=== PATIENT | male | born 1975 | race Caucasian/White ===

== ENCOUNTER 2019-06-05 06:18 | Inpatient (IN) ==
[2019-06-05 06:25] LABS: BASO# 0.06 X1000 (0.0-0.2); BASO% 0.9 % (0.0-0.8); EOS# 0.33 X1000 (0.0-0.7); EOS% 4.7 % (0.0-10.0); HEMATOCRIT 51.5 % (42.0-52.0); HEMOGLOBIN 18.1 g/dL (14.0-18.0); LYMPH# 1.48 X1000 (1.2-3.4); MCH 30.6 PG (27-31); MCHC 35.1 g/dL (33-37); MCV 87.1 FL (81-99); MONO# 0.63 X1000 (0.11-0.59); MONO% 8.9 % (1.7-9.3); MPV 9.8 FL (7.4-10.4); NEUT# 4.54 X1000 (1.4-6.5); NEUT% 64.5 % (42.2-75.2); PLT 275 X1000 (130-400); RBC 5.91 XMIL (4.7-6.1); RDW 15.3 % (11.5-14.5); WBC 7.04 X1000 (4.8-10.8)
[2019-06-05 06:44] LABS: AGAP 20; ALKALINE PHOSPHATASE 86 U/L (32-122); BUN 7 mg/dL (8-22); CALCIUM 9.5 mg/dL (8.8-10.2); CHLORIDE 93 mmol/L (98-107); COSMO 279; CREATININE 0.8 mg/dL (0.7-1.2); ESTIMATED GFR > 60; GLUCOSE 101 mg/dL (70-104); GOT 374 U/L (10-34); GPT 327 U/L (10-44); LIPASE 139 U/L (13-60); POTASSIUM 4.4 mmol/L (3.5-5.1); SODIUM 141 mmol/L (136-145); TCO2 29 mmol/L (25-35); TOTAL PROTEIN 8.2 g/dL (6.3-8.3)
[2019-06-05 07:12] LABS: URINE SOURCE CLEAN CATCH
[2019-06-05] MEDS ORDERED: ZOFRAN IV ONE (07:20)
[2019-06-05] MEDS ORDERED: M.V.I.-12 10 ML, FOLIC ACID 1 MG, MAGNESIUM SULFATE 1 GM, THIAMINE 100 MG in NS 1,000 ML IV ONE (07:20)
[2019-06-05 07:24] LABS: BILIRUBIN URINE NEGATIVE (NEGATIVE); BLOOD URINE 4+ (NEGATIVE); CLARITY CLEAR (CLEAR); COLOR YELLOW; GLUCOSE URINE NEGATIVE (NEGATIVE); KETONE URINE NEGATIVE (NEGATIVE); LEUKOCYTES URINE NEGATIVE (NEGATIVE); NITRITE URINE NEGATIVE (NEGATIVE); PH URINE 6.5; PROTEIN URINE 1+(30 mg/dL) mg/dL (NEGATIVE); UROBILINOGEN URINE NORMAL
[2019-06-05 07:31] LABS: URINE BACTERIA 1+ /HFP; URINE CAST NONE SEEN /LPF; URINE CRYSTAL NONE SEEN /HPF; URINE EPITHELIAL CELLS <10 /HPF (<10); URINE RBC TNTC /HPF (<10); URINE WBC <10 /HPF (<10); URINE YEAST NONE SEEN /HPF
[2019-06-05 07:33] LABS: UR AMPHETAMINES QUAL NONE DETECTED (NONE DETECT); UR BARBITUATES QUAL NONE DETECTED (NONE DETECT); UR BENZODIAZEPIN QUAL NONE DETECTED (NONE DETECT); UR CANNABINOIDS QUAL PRESUMPTIVE POSITIVE (NONE DETECT); UR COCAINE QUAL NONE DETECTED (NONE DETECT); UR METHADONE QUAL NONE DETECTED (NONE DETECT); UR METHAMPHETAMINE QUAL NONE DETECTED (NONE DETECT); UR OPIATES QUAL NONE DETECTED (NONE DETECT); UR OXYCODONE QUAL NONE DETECTED (NONE DETECT); UR PCP QUAL NONE DETECTED (NONE DETECT); UR PROPOXYPHENE QUAL NONE DETECTED (NONE DETECT); UR TCA QUAL NONE DETECTED (NONE DETECT)
--- NOTE | 2019-06-05 07:57 | PROVIDER DOCUMENTATION ---
HPI-General Adult - General Chief Complaint: Abdominal Pain Stated Complaint: Abd. pain/elevated heart rate Time Seen by Provider: 06/05/19 07:06 Source: patient Allergies/Adverse Reactions: Patient Allergies Allergy/AdvReac Type Severity Reaction Status Date / Time No Known Allergies Allergy Verified 06/05/19 05:58 Home Medications: Home Medication List Medication Instructions Recorded Confirmed Last Taken Type NK [No Home Medications] 06/05/19 06/05/19 Unknown History - History of Present Illness -Gen Adult Nature of Presenting Problems: Pt presents this am complaining of vomiting and abd pain as well as seeking help with alcohol abuse and depression. He states a long history of feeling depressed and suicidal and has severe agoraphobia, spending as long as 2 years at one point isolating himself. He drinks daily and has not eaten in 3 days. He drinks only beer now, not liquor. He has no plan to kill himself currently, but has thoughts of it because of hopelessness. No dark stools, hematochezia, he matemesis. Review of Systems - Adult - REVIEW OF SYSTEMS - ADULT Constitutional: denies: chills, fever Eyes: reports: no symptoms reported Ears, Nose, Mouth & Throat: reports: no symptoms reported Cardiovascular: reports: no symptoms reported Respiratory: reports: no symptoms reported Gastrointestinal: reports: see HPI Genitourinary: reports: no symptoms reported Musculoskeletal: reports: no symptoms reported Integumentary: reports: no symptoms reported Neurological: reports: no symptoms reported Psychiatric: reports: see HPI Endocrine: reports: no symptoms reported Hematologic/Lymphatic: reports: no symptoms reported Allergic/Immunologic: reports: no symptoms reported Past History - Adult - PAST MEDICAL HISTORY-ADULT Review of Records: reports: Nursing Assessment Review, Medications Reviewed Major Childhood Illnesses: reports: denies history Cardiovascular: reports: denies history Respiratory: reports: asthma Gastrointestinal: reports: denies history Obstetrical/Gynecological: reports: denies history Genitourinary: reports: denies history Musculoskeletal: reports: chronic pain (neck), intervertebral disc disease Neurological: reports: denies history Psychiatric: reports: anxiety Endocrine/Immune: reports: denies history Other Conditions: reports: denies history - PRIOR SURGERIES/PROCEDURES Surgical/Procedure History: reports: back/neck - IMMUNIZATION STATUS Childhood Immunizations: See Nurse Assessment Flu Vaccine: See Nurse Assessment - FAMILY HISTORY Family History: reviewed, not pertinent Physical Exam-General - CONSTITUTIONAL General Appearance: appears well, alert - EYES Eyes: PERRL/EOMI, pink conjunctivae - HEAD, EARS, NOSE, MOUTH & THROAT HENMT: normocephalic/atraumatic, moist mucous membranes, normal ENT inspection - NECK Neck: non-tender, full range of motion, supple, normal inspection - RESPIRATORY Respiratory: chest non-tender, lungs clear, normal breath sounds - CARDIOVASCULAR Cardiovascular: normal peripheral pulses, regular rate, rhythm, no edema, no JVD - GASTROINTESTINAL (ABDOMEN) Abdominal Exam: normal bowel sounds, non tender, soft - MUSCULOSKELETAL Back Exam: normal inspection, no CVA tenderness, no vertebral tenderness Extremity: normal range of motion, non-tender - SKIN Integumentary: normal color, normal turgor, warm/dry - NEUROLOGIC Neurologic: other (No tremor, clear speech.). negative: focal weakness, motor weakness, sensory deficit - PSYCHIATRIC Psych/Mental Status: normal thought content, normal thought process, oriented x 3, anxious Progress - PLAN OF CARE/RESULTS Progress/Plan/Lab Results: Vital Signs - 8 hr 06/05/19 05:53 Temperature 98.1 F Pulse Rate 115 H Respiratory Rate 16 Blood Pressure 155/107 O2 Sat by Pulse Oximetry 94 L Laboratory Results - last 24 hr 06/05/19 06/05/19 06/05/19 06:14 06:14 06:14 WBC 7.04 RBC 5.91 Hgb 18.1 H Hct 51.5 MCV 87.1 MCH 30.6 MCHC 35.1 RDW Std Deviation 15.3 H Plt Count 275 MPV 9.8 Immature Gran % (Auto) 0.0 Neut % (Auto) 64.5 Lymph % (Auto) 21.0 [place] % (Auto) 8.9 Eos % (Auto) 4.7 Baso % (Auto) 0.9 H Immature Gran # (Auto) 0.00 Neut # (Auto) 4.54 Lymph # (Auto) 1.48 Glad[place] # (Auto) 0.63 H Eos # (Auto) 0.33 Baso # (Auto) 0.06 Sodium 141 Potassium 4.4 Chloride 93 L Carbon Dioxide 29 Anion Gap 20 BUN 7 L Creatinine 0.8 Estimated GFR/1.73 m2 > 60 BUN/Creatinine Ratio 9 Glucose 101 Calculated Osmolality 279 Calcium 9.5 Total Bilirubin 1.20 H AST 374 H ALT 327 H Alkaline Phosphatase 86 Total Protein 8.2 Albumin 5.0 Globulin 3.0 Albumin/Globulin Ratio 2.0 Lipase 139 H Urine Source Urine Color Urine Clarity Urine pH Ur Specific [place] Urine Protein Urine Ketones Urine Blood Urine Nitrite Urine Bilirubin Urine Urobilinogen Urine Microscopic RBC Urine WBC Urine Microscopic WBC Ur Epithelial Cells Urine Crystals Urine Bacteria Urine Casts Urine Yeast Urine Glucose Urine Opiates Screen Ur Oxycodone Screen Urine Methadone Screen U Propoxyphene Qual Ur Barbituates Screen Ur Tricyclics Screen Ur Phencyclidine Scrn Ur Amphetamines Screen U Methamphetamines Scrn U Benzodiazepines Scrn Urine Cocaine Screen U Cannabinoids Screen Plasma/Serum Ethyl Alc 336 H 06/05/19 06/05/19 07:03 07:03 WBC RBC Hgb Hct MCV MCH MCHC RDW Std Deviation Plt Count MPV Immature Gran % (Auto) Neut % (Auto) Lymph % (Auto) Glad[place] % (Auto) Eos % (Auto) Baso % (Auto) Immature Gran # (Auto) Neut # (Auto) Lymph # (Auto) [place] # (Auto) Eos # (Auto) Baso # (Auto) Sodium Potassium Chloride Carbon Dioxide Anion Gap BUN Creatinine Estimated GFR/1.73 m2 BUN/Creatinine Ratio Glucose Calculated Osmolality Calcium Total Bilirubin AST ALT Alkaline Phosphatase Total Protein Albumin Globulin Albumin/Globulin Ratio Lipase Urine Source CLEAN CATCH Urine Color YELLOW Urine Clarity CLEAR Urine pH 6.5 Ur Specific [place] 1.010 Urine Protein 1+(30 mg/dL) A Urine Ketones NEGATIVE Urine Blood 4+ Urine Nitrite NEGATIVE Urine Bilirubin NEGATIVE Urine Urobilinogen NORMAL Urine Microscopic RBC TNTC A Urine WBC NEGATIVE Urine Microscopic WBC <10 Ur Epithelial Cells <10 Urine Crystals NONE SEEN Urine Bacteria 1+ Urine Casts NONE SEEN Urine Yeast NONE SEEN Urine Glucose NEGATIVE Urine Opiates Screen NONE DETECTED Ur Oxycodone Screen NONE DETECTED Urine Methadone Screen NONE DETECTED U Propoxyphene Qual NONE DETECTED Ur Barbituates Screen NONE DETECTED Ur Tricyclics Screen NONE DETECTED Ur Phencyclidine Scrn NONE DETECTED Ur Amphetamines Screen NONE DETECTED U Methamphetamines Scrn NONE DETECTED U Benzodiazepines Scrn NONE DETECTED Urine Cocaine Screen NONE DETECTED U Cannabinoids Screen PRESUMPTIVE POSITIVE A Plasma/Serum Ethyl Alc Orders Category Date Time Status Saline Loc NOW Care 06/05/19 06:19 Active NPO Diet 06/05/19 06:19 Active ALCOHOL BLOOD Stat Lab 06/05/19 06:14 Completed CBC WITH DIFF [HEME] Stat Lab 06/05/19 06:14 Completed COMPREHENSIVE METABOLIC PANEL [CHEM] Stat Lab 06/05/19 06:14 Completed LIPASE [CHEM] Stat Lab 06/05/19 06:[address] [URINALYSIS] Stat Lab 06/05/19 07:03 Com[address]INE DRUG SCREEN [address] Stat Lab 06/05/19 07:03 Completed URINE MICROSCOPIC [URINALYSIS] Stat Lab 06/05/19 07:03 Completed Mvi [M.v.i.-12] 10 ml Med 06/05/19 07:20 Active Folic Acid 1 mg Magnesium Sulfate 1 gm Thiamine 100 mg 0.9% Sodium Chloride Inj [Ns] 1,000 ml IV NOW Ondansetron [Zofran] Med 06/05/19 07:20 Discontinued 4 mg IV NOW ONE Abd Pain/OB <20 weeks Stat Oth 06/05/19 06:19 Ordered EKG [EKG] Stat Ther 06/05/19 07:20 Ordered CLINICALLY STABLE UNDER MY CARE. THE PT WAITED IN THE ED THROUGH THE DAY FOR HIS BG TO GET UNDER 100 SO THAT HE COULD UNDERGO PSYCH SCREENING. HE BEGAN TO BECOME INCREASINGLY ANXIOUS AND DEVELOPED FINE RESTING TREMOR CONSISTENT WITH ETOH WITHDRAWAL. HE WAS GIVEN MULTIPLE DOSES OF ATIVAN IN ADDITION TO A BANANA BAG AND IV NS. GIVEN HIS CURRENT WITHDRAWAL STATE HE WAS ADMITTED TO THE HOSPITALIST SERVICE. NO SEIZURE ACTIVITY NOTED. Result Diagrams: 06/05/19 06:14 06/05/19 06:14 Departure - Departure Date of Disposition Decision: 06/05/19 Time of Disposition Decision: 18:20 DIAGNOSIS: Suicidal ideation Alcohol withdrawal Qualifiers: Complication of substance-induced condition: uncomplicated Qualified Code(s): F10.230 - Alcohol dependence with withdrawal, uncomplicated Alcoholic pancreatitis Qualifiers: Chronicity: acute Acute pancreatitis complication: unspecified Qualified Code(s): K85.20 - Alcohol induced acute pancreatitis without necrosis or infection Disposition: ADMITTED INPATIENT 09 Certified Medical Emergency: Emergent Condition: Fair - Critical Care Note This patient required my direct & personal management of CC.: No Attestation - Physician/ BLANK Attestation Patient care was provided by Advanced Practice Provider:: No The physician spent face to face time with patient:: Yes Advanced Practice Provider documentation review:: Supervising physician onsite and consulted in the evaluation and care of this patient. The physician did have a face to face encounter with the patient.
[2019-06-05] MEDS ORDERED: ATIVAN IV ONE ×4 (10:31→18:31)
--- NOTE | 2019-06-05 12:10 | EKG Report ---
Test Performed on : 06/05/2019 12:02:26 PM Test Reason : screening. Blood Pressure : / mmHG Vent. Rate : 083 BPM Atrial Rate : 083 BPM P-R Int : 152 ms QRS Dur : 086 ms QT Int : 376 ms P-R-T Axes : 065 074 069 degrees QTc Int : 441 ms Normal sinus rhythm. Possible Left atrial enlargement Borderline ECG No previous ECGs available Unconfirmed Result
[2019-06-05] MEDS ORDERED: ATIVAN ONE (17:55)
[2019-06-05] MEDS ORDERED: NS 1,000 ML IV ONE (18:16)
[2019-06-05] MEDS ORDERED: D5W 1,000 ML IV PRN (18:31)
[2019-06-05] MEDS ORDERED: IMODIUM PO PRN (18:31)
[2019-06-05] MEDS ORDERED: DESYREL PO PRN (18:31)
[2019-06-05] MEDS ORDERED: DULCOLAX PR PRN (18:31)
[2019-06-05] MEDS ORDERED: BENTYL PO PRN (18:31)
[2019-06-05] MEDS ORDERED: TUBERSOL ID ONE ×2 (18:31→21:15)
[2019-06-05] MEDS ORDERED: MAALOX PLUS LIQUID PO PRN (18:31)
[2019-06-05] MEDS ORDERED: SENOKOT PO PRN (18:31)
[2019-06-05] MEDS ORDERED: PHENOBARBITAL IV PRN (18:31)
[2019-06-05 19:16] LABS: HEMOGLOBIN 15.9 g/dL (14.0-18.0); MCH 30.5 PG (27-31); MCHC 34.6 g/dL (33-37); MCV 88.1 FL (81-99); MPV 10.6 FL (7.4-10.4); RBC 5.22 XMIL (4.7-6.1); RDW 15.3 % (11.5-14.5); WBC 5.51 X1000 (4.8-10.8)
[2019-06-05] MEDS: LIBRIUM PO SCH (19:56)
[2019-06-05 20:09] LABS: AGAP 16; ALBUMIN 4.2 g/dL (3.5-5.0); ALKALINE PHOSPHATASE 68 U/L (32-122); BUN 7 mg/dL (8-22); CALCIUM 9.3 mg/dL (8.8-10.2); CHLORIDE 96 mmol/L (98-107); COSMO 275; CREATININE 0.6 mg/dL (0.7-1.2); ESTIMATED GFR > 60; GLUCOSE 90 mg/dL (70-104); GOT 257 U/L (10-34); GPT 260 U/L (10-44); LIPASE 82 U/L (13-60); POTASSIUM 4.6 mmol/L (3.5-5.1); SODIUM 139 mmol/L (136-145); TCO2 28 mmol/L (25-35)
[2019-06-05] MEDS: ATARAX PO PRN (22:54)
[2019-06-05] MEDS: ROBAXIN PO PRN (22:54)
--- NOTE | 2019-06-05 23:33 | HISTORY AND PHYSICAL ---
CHIEF COMPLAINT: Abdominal pain. HISTORY OF PRESENT ILLNESS: Patient presented to the hospital with abdominal pain, nausea, vomiting. States that he has been drinking heavily at least 15 beers or more a day. Denied any fevers or chills. States he has a long history of drinking and isolating himself. Notes that when he becomes depressed and starts drinking more, he also becomes suicidal, which he has had some negative thoughts recently. Notes that he wants help. States he has no plan to kill himself, but he has had negative thoughts and thoughts of hopelessness. ALLERGIES: No known drug allergies. MEDICATIONS: None. REVIEW OF SYSTEMS: As noted above. Denies any cough, congestion. Does states he has had sweating, tremors, myalgias, abdominal pain. He has had some diarrhea. Denies any hematochezia, melena, hematemesis. Denies fevers or chills. States he has had tremors at rest. Has had difficulty concentrating. Denies any seizures from withdrawal in the past but does note that his symptoms typically do get worse. PAST MEDICAL HISTORY: Significant for back pain, chronic anxiety, depression, asthma. Notes he has had back issues in the past requiring surgical intervention. FAMILY HISTORY: Noncontributory. SOCIAL HISTORY: Patient has been drinking heavily. He does smoke. Denies any illicit substance use. PHYSICAL EXAMINATION: VITAL SIGNS: Reviewed. Temperature 98 degrees, pulse 115, respiratory 16, BP 155/107, saturation 94% on room air. GENERAL: Patient is awake, alert. He is in moderate distress due to withdrawal, but he is in no respiratory distress. HEENT: Normocephalic, atraumatic. RHIANNON. NECK: Supple. CARDIOVASCULAR: Tachycardia. No murmurs. CHEST: Clear and nonlabored although is tachypneic. ABDOMEN: Soft, nondistended. EXTREMITIES: Moves all extremities. NEUROLOGIC: He has no focal changes though he does have tremors at rest. He is jittery, anxious on exam. SKIN: He is noted to be diaphoretic. Has no rashes. LABORATORIES: CBC, CMP essentially negative with a CO2 at 29. ASSESSMENT: 1. Nausea, vomiting. 2. Abdominal pain. 3. Myalgias. 4. Paresthesias. 5. Tremors. 6. Alcohol abuse, withdrawal and stabilization. 7. Chronic anxiety, depression with suicidal thoughts. PLAN: We are going to admit patient to the hospital. IV Ativan. Start him on p.o. Librium. We will continue to follow and monitor for withdrawal. Certainly will need to consider [facility] upon discharge. cc: Tien Laura MD
[2019-06-05] MEDS: ATIVAN IV PRN (23:51)
[2019-06-06] MEDS: LIBRIUM PO SCH ×4 (06:13→18:42)
[2019-06-06] MEDS: PROTONIX PO SCH (06:13)
[2019-06-06 07:29] LABS: INR 0.83; PROTIME 11.8 Seconds (11.0-16.0)
[2019-06-06] MEDS ORDERED: THERA M PLUS PO SCH (09:00)
[2019-06-06] MEDS ORDERED: M.V.I.-12 10 ML, FOLIC ACID 1 MG, MAGNESIUM SULFATE 1 GM, THIAMINE 100 MG in NS 1,000 ML IV ONE (09:00)
[2019-06-06] MEDS: FOLIC ACID PO SCH (09:58)
[2019-06-06] MEDS: VITAMIN B-1 PO SCH (09:58)
--- NOTE | 2019-06-06 11:57 | Diag Imaging Result Doc PS360 ---
EXAM: US ABDOMEN-COMPLETE - 06/06/2019 HISTORY: elevated lft TECHNIQUE: Portable ultrasound abdomen COMPARISON: 07/22/2018 FINDINGS: The liver appears somewhat echodense diffusely suggesting fatty infiltration. There is no focal liver lesion identified. Doppler image shows hepatopedal flow in the portal vein. Spleen is unremarkable. There is no ascites seen. The gallbladder is mildly distended but otherwise unremarkable. There is no evidence of gallstones. There is no evidence of abnormal gallbladder wall thickening. The technologist reports negative sonographic Crawford's sign. The common bile duct is normal caliber at 4 mm. The pancreas is obscured by bowel gas artifacts. There are no abnormalities of the bilateral kidneys identified. Abdominal aorta and IVC appear normal caliber. IMPRESSION: Apparent fatty infiltration of liver. No evidence of focal liver lesion. Nonspecific mildly distended gallbladder, which is otherwise unremarkable. No evidence of gallstones. Normal caliber common bile duct at 4 mm. The pancreas is obscured by bowel gas artifacts. Electronically signed by Efren Robin 06/06/2019 11:54 AM
[2019-06-06] MEDS: ATIVAN IV PRN ×3 (14:38→23:10)
--- NOTE | 2019-06-06 19:50 | PROGRESS NOTE ---
DATE: 06/06/2019 SUBJECTIVE: The patient notes that he feels tremendously better. He is not having any tremors currently. Denies any current active suicidal thoughts, but states he is still depressed and still has difficulty with his future plans. OBJECTIVE: Vital Signs: Temperature 99 degrees, pulse 92, respiratory rate 18, BP 97/58 to 131/84. General: The patient is in no current respiratory distress. He is awake, alert, oriented, very pleasant to talk with. Tremors have all but resolved. He is no longer sweating. He does not appear to be jittery, anxious or fidgety on exam and he was in the ER last night. Cardiovascular: Regular rate. Chest clear. Abdomen soft. Extremities: Moves all extremities. Neurologic: No changes. ASSESSMENT: 1. Nausea and vomiting. 2. Abdominal pain. 3. Myalgias. 4. Tremors. 5. Paresthesias. 6. Paroxysmal sweating. 7. Alcohol abuse, withdrawal and stabilization. 8. Chronic depression with suicidal ideations. PLAN: We are going to continue the patient in the hospital. Continue high-dose Librium taper. Continue counseling. We will get [facility] involved on discharge. cc: Tien Laura MD
[2019-06-06] MEDS: NICODERM PATCH TD PRN ×2 (21:23)
[2019-06-06] MEDS: ROBAXIN PO PRN (21:23)
[2019-06-06] MEDS: SEROQUEL PO PRN (21:23)
[2019-06-06] MEDS: ATARAX PO PRN (21:34)
[2019-06-07] MEDS: LIBRIUM PO SCH ×4 (00:03→20:51)
[2019-06-07] MEDS: ATIVAN IV PRN ×4 (02:12→22:45)
[2019-06-07] MEDS: ROBAXIN PO PRN (03:05)
[2019-06-07] MEDS: ATARAX PO PRN (03:05)
[2019-06-07 05:52] LABS: HEMOGLOBIN 15.2 g/dL (14.0-18.0); MCHC 33.8 g/dL (33-37); MCV 88.8 FL (81-99); MPV 10.8 FL (7.4-10.4); RBC 5.07 XMIL (4.7-6.1); WBC 8.81 X1000 (4.8-10.8)
[2019-06-07] MEDS: PROTONIX PO SCH (06:08)
[2019-06-07 06:16] LABS: AGAP 14; ALBUMIN 4.5 g/dL (3.5-5.0); ALKALINE PHOSPHATASE 80 U/L (32-122); BUN 7 mg/dL (8-22); CHLORIDE 98 mmol/L (98-107); COSMO 273; CREATININE 0.7 mg/dL (0.7-1.2); ESTIMATED GFR > 60; GLUCOSE 94 mg/dL (70-104); GOT 148 U/L (10-34); GPT 213 U/L (10-44); MAGNESIUM 1.9 mg/dL (1.5-2.7); POTASSIUM 3.9 mmol/L (3.5-5.1); SODIUM 138 mmol/L (136-145); TCO2 26 mmol/L (25-35); TOTAL PROTEIN 7.5 g/dL (6.3-8.3)
[2019-06-07] MEDS: FOLIC ACID PO SCH (09:06)
[2019-06-07] MEDS: VITAMIN B-1 PO SCH (09:06)
--- NOTE | 2019-06-07 14:07 | PROGRESS NOTE ---
DATE: 06/07/2019 SUBJECTIVE: Patient has no new complaints. States he is still anxious, nervous, worried about discharge. Continues to complain of neck pain, back pain. His neurologic symptoms certainly seem to be changing. Yesterday he denies any weakness and when we discussed his neck pain, although he did state that he had numbness in his legs. Today, he appears to note that he has had weakness in both hands off and on for several months. He is asking that he has an MRI. PHYSICAL EXAMINATION: Vital Signs: Temperature 97.8 degrees, pulse 91, respiratory rate 18, BP 121/86. General: Patient is awake. He is in no distress. HEENT: Normocephalic. Neck: Supple. Cardiovascular: Regular rate. Chest: Clear, nonlabored. Abdomen: Soft. Extremities: Moves all extremities. He has no focal deficits easily appreciable. ASSESSMENT: 1. Acute hepatitis likely alcohol induced. His AST ALT both have decreased. 2. Nausea and vomiting resolved. 3. Abdominal pain resolved. 4. Myalgias. 5. Paresthesias. 6. Tremors resolved. 7. Alcohol abuse withdrawal and stabilization. 8. Chronic anxiety, depression. 9. Chronic cervical, lumbar and thoracic pain. PLAN: We will continue patient in the hospital. Will move out of the ICU to the floor. Continue Librium taper. Continue counseling. Discussed with him that MRI unfortunately and thankfully will not treat any neurologic symptoms. Discussed that we do not have the opportunity to do nonemergent MRIs on the weekend. Discussed that it is highly unlikely that surgery would be an option to fix his chronic problem. We will continue to follow. Further orders as needed. cc: Tien Laura MD
[2019-06-07] MEDS: MOTRIN PO PRN (18:18)
[2019-06-07] MEDS: ZOFRAN ODT PO PRN (18:18)
[2019-06-07] MEDS: SEROQUEL PO PRN (20:51)
[2019-06-07] MEDS: NICODERM PATCH TD PRN (20:51)
[2019-06-08] MEDS: LIBRIUM PO SCH ×3 (00:37→12:00)
[2019-06-08] MEDS: ATIVAN IV PRN ×3 (03:02→21:32)
[2019-06-08] MEDS: PROTONIX PO SCH (06:36)
--- NOTE | 2019-06-08 09:18 | PROGRESS NOTE ---
DATE: 06/08/2019 SUBJECTIVE: The patient complains of having anxiety and depression issues. He denies having any other complaints. OBJECTIVE: Vital Signs: Temperature 98.0 degrees, pulse 82 per minute, respiratory rate 18 per minute, blood pressure 106/68, pulse oximetry 100% on room air. General: Patient is alert and oriented x3. He does not appear to be in any acute distress. Cardiovascular System: First and second heart sounds are audible without any murmurs or gallops. Respiratory System: No respiratory distress noted. Bilateral lung air entry is good without any rales or rhonchi. Gastrointestinal System: Abdomen is soft and nondistended. Normal bowel sounds are present. Psychiatric: The patient appears to be significantly anxious. Diagnostic Data: CBC is nondiagnostic. Comprehensive metabolic panel obtained on 06/07/2019 showed AST levels of 148 and ALT 213, with total bilirubin of 1.3. Rest of the comprehensive metabolic panel is nondiagnostic. IMPRESSION: Abdominal pain with alcoholic hepatitis in this is a 43-year-old gentleman who also has anxiety disorder and depression with suicidal thoughts. PLAN: The patient will be started on paroxetine 20 mg orally once daily and would continue to get lorazepam IV as needed, along with oral chlordiazepoxide for prevention of alcohol withdrawal. He will also continue with IV fluids along with dicyclomine 20 mg p.o. q.6 hours as needed for abdominal cramps. Furthermore, he will continue with Protonix 40 mg daily, along with thiamine 100 mg daily. We will obtain [facility] consultation for his mental health evaluation since he is having depression with suicidal thoughts. Further recommendations will be given as per the [facility]. cc: MD Tien Blackburn MD
[2019-06-08] MEDS: VITAMIN B-1 PO SCH (11:54)
[2019-06-08] MEDS: PAXIL PO SCH (11:54)
[2019-06-08] MEDS: FOLIC ACID PO SCH (11:54)
[2019-06-08] MEDS: ZOFRAN IV PRN (11:54)
[2019-06-08] MEDS: NICODERM PATCH TD PRN (21:32)
[2019-06-08] MEDS: TYLENOL PO PRN (21:32)
[2019-06-08] MEDS: ZOFRAN ODT PO PRN (21:33)
[2019-06-09] MEDS: ATARAX PO PRN (02:09)
[2019-06-09] MEDS: ATIVAN IV PRN ×3 (02:09→18:18)
[2019-06-09] MEDS: PROTONIX PO SCH (06:20)
[2019-06-09 06:31] LABS: BASO# 0.02 X1000 (0.0-0.2); BASO% 0.3 % (0.0-0.8); EOS# 0.33 X1000 (0.0-0.7); EOS% 4.5 % (0.0-10.0); HEMATOCRIT 44.8 % (42.0-52.0); HEMOGLOBIN 14.7 g/dL (14.0-18.0); IMM GRAN# 0.02 X1000 (0.0-0.04); IMM GRAN% 0.3 % (0.0-0.5); LYMPH% 21.7 % (20.5-51.1); MCH 29.6 PG (27-31); MCHC 32.8 g/dL (33-37); MCV 90.1 FL (81-99); MONO# 0.55 X1000 (0.11-0.59); MONO% 7.5 % (1.7-9.3); NEUT# 4.85 X1000 (1.4-6.5); NEUT% 65.7 % (42.2-75.2); PLT 200 X1000 (130-400); RBC 4.97 XMIL (4.7-6.1); RDW 14.7 % (11.5-14.5); WBC 7.37 X1000 (4.8-10.8)
[2019-06-09 07:15] LABS: AGAP 14; ALBUMIN 4.2 g/dL (3.5-5.0); ALKALINE PHOSPHATASE 74 U/L (32-122); BUN 9 mg/dL (8-22); CALCIUM 10.1 mg/dL (8.8-10.2); CHLORIDE 98 mmol/L (98-107); COSMO 280; CREATININE 0.9 mg/dL (0.7-1.2); ESTIMATED GFR > 60; GGT 67 U/L (11-50); GLUCOSE 107 mg/dL (70-104); GOT 94 U/L (10-34); GPT 170 U/L (10-44); MAGNESIUM 1.7 mg/dL (1.5-2.7); POTASSIUM 3.7 mmol/L (3.5-5.1); SODIUM 141 mmol/L (136-145); TCO2 29 mmol/L (25-35); TOTAL PROTEIN 7.3 g/dL (6.3-8.3)
[2019-06-09] MEDS: PAXIL PO SCH ×2 (10:09→20:20)
[2019-06-09] MEDS: VITAMIN B-1 PO SCH (10:09)
[2019-06-09] MEDS: FOLIC ACID PO SCH (10:09)
[2019-06-09] MEDS: ZOFRAN IV PRN (11:03)
[2019-06-09] MEDS: ROBAXIN PO PRN (11:03)
[2019-06-09] MEDS: TYLENOL PO PRN (15:04)
[2019-06-09] MEDS: MOTRIN PO PRN (18:18)
[2019-06-09] MEDS: ZOFRAN ODT PO PRN (18:46)
--- NOTE | 2019-06-09 21:24 | PROGRESS NOTE ---
DATE: 06/09/2019 SUBJECTIVE: Patient notes that he is feeling a lot better. He is not having any tremors or myalgias. He is still very stressed, depressed. PHYSICAL EXAMINATION: Vital Signs: Temperature 98 degrees, pulse 65, respiratory rate 18, BP 117/72. General: Patient is awake, currently in no respiratory distress. HEENT: Normocephalic. Neck: Supple. Cardiovascular: Regular rate. No murmurs. Chest: Clear. Abdomen: Soft. Extremities: Moves all extremities. ASSESSMENT: 1. Acute alcoholic hepatitis. AST and ALT both continue to decrease, currently at 67 and 94. 2. Nausea, resolved. 3. Abdominal pain, improved. 4. Alcohol withdrawal and stabilization. 5. Depression, with suicidal thoughts. PLAN: We are going to consult [facility]. Continue to wean Librium. Further orders as needed. cc: Tien Laura MD
[2019-06-10] MEDS: PROTONIX PO SCH (06:03)
[2019-06-10] MEDS: VITAMIN B-1 PO SCH (09:17)
[2019-06-10] MEDS: FOLIC ACID PO SCH (09:17)
[2019-06-10] MEDS: ROBAXIN PO PRN ×2 (09:26→18:11)
[2019-06-10] MEDS: ATIVAN IV PRN ×4 (09:26→21:46)
[2019-06-10 09:53] LABS: HEMATOCRIT 45.3 % (42.0-52.0); HEMOGLOBIN 14.8 g/dL (14.0-18.0); MCH 30.1 PG (27-31); MCHC 32.7 g/dL (33-37); MCV 92.1 FL (81-99); MPV 10.9 FL (7.4-10.4); RBC 4.92 XMIL (4.7-6.1); RDW 14.7 % (11.5-14.5); WBC 9.64 X1000 (4.8-10.8)
[2019-06-10 11:03] LABS: AGAP 9; ALBUMIN 4.4 g/dL (3.5-5.0); ALKALINE PHOSPHATASE 74 U/L (32-122); BUN 12 mg/dL (8-22); CALCIUM 9.9 mg/dL (8.8-10.2); CHLORIDE 98 mmol/L (98-107); COSMO 274; ESTIMATED GFR > 60; GLUCOSE 81 mg/dL (70-104); GOT 55 U/L (10-34); GPT 130 U/L (10-44); POTASSIUM 4.4 mmol/L (3.5-5.1); SODIUM 138 mmol/L (136-145); TCO2 31 mmol/L (25-35); TOTAL PROTEIN 7.4 g/dL (6.3-8.3)
[2019-06-10] MEDS: MOTRIN PO PRN ×2 (13:00→21:46)
[2019-06-10] MEDS: ZOFRAN IV PRN (18:11)
--- NOTE | 2019-06-10 19:06 | PROGRESS NOTE ---
DATE: 06/10/2019 SUBJECTIVE: The patient has no major complaints. OBJECTIVE: Blood pressure 111/68, heart rate 68, respiratory rate 18, temperature 98.3 degrees, 100% on room air.Cardiovascular: Regular rate and rhythm. Pulmonary: Bilateral breath sounds, clear to auscultation. Gastrointestinal: Soft, nontender, nondistended. Bowel sounds are positive. LABORATORY DATA: White count is 9, hemoglobin and hematocrit 14 and 45, platelets 207,000. Total bilirubin is 1.3, AST and ALT are down to 55 and 130. ASSESSMENT AND PLAN: Problem list: 1. Acute alcoholic hepatitis. Numbers are continuing to improve. We will continue to follow. 2. Alcohol withdrawal syndrome. He has completed his course of medications. He is complaining of intermittent pain. 3. Disposition: I get a sense that he is homeless. Social Work has been consulted. I am not sure what we are looking at as far as options when he leaves the hospital. He is not qualified for inpatient psychiatric treatment, but we will continue to follow. cc: MD Tien Drake MD
[2019-06-10] MEDS: PAXIL PO SCH (21:36)
[2019-06-10] MEDS: NS 1,000 ML IV SCH (21:37)
[2019-06-11] MEDS: NICODERM PATCH TD PRN (00:18)
[2019-06-11] MEDS: SEROQUEL PO PRN ×2 (00:19→21:48)
[2019-06-11] MEDS: ATIVAN IV PRN ×4 (00:20→15:25)
[2019-06-11 06:17] LABS: AGAP 8; ALBUMIN 3.7 g/dL (3.5-5.0); ALKALINE PHOSPHATASE 64 U/L (32-122); BUN 8 mg/dL (8-22); CALCIUM 9.3 mg/dL (8.8-10.2); CHLORIDE 105 mmol/L (98-107); COSMO 273; CREATININE 0.8 mg/dL (0.7-1.2); ESTIMATED GFR > 60; GLUCOSE 85 mg/dL (70-104); GOT 29 U/L (10-34); GPT 86 U/L (10-44); POTASSIUM 4.2 mmol/L (3.5-5.1); SODIUM 138 mmol/L (136-145); TCO2 25 mmol/L (25-35); TOTAL PROTEIN 6.2 g/dL (6.3-8.3)
[2019-06-11] MEDS: PROTONIX PO SCH (06:42)
[2019-06-11] MEDS: NS 1,000 ML IV SCH ×2 (07:13→16:57)
[2019-06-11] MEDS: VITAMIN B-1 PO SCH (08:26)
[2019-06-11] MEDS: FOLIC ACID PO SCH (08:26)
[2019-06-11] MEDS: MOTRIN PO PRN (11:36)
[2019-06-11] MEDS: TYLENOL PO PRN (15:45)
[2019-06-11] MEDS: ATARAX PO PRN (21:48)
--- NOTE | 2019-06-11 22:17 | PROGRESS NOTE ---
DATE: 06/11/2019 SUBJECTIVE: The patient has no major complaints. OBJECTIVE: Blood pressure is 108/64, heart rate is 64, respiratory rate of 14, temperature 98.5 degrees. Cardiovascular: Regular rate and rhythm. Pulmonary: Bilateral breath sounds, clear to auscultation. GI was soft, nontender. Bowel sounds are positive. ASSESSMENT AND PLAN: Problem list: 1. Alcoholic hepatitis. Numbers are improving. Continue to monitor. 2. Alcohol withdrawal syndrome. He is on p.r.n. Librium. We will continue to follow. Stop intravenous Ativan. 3. Disposition: Anticipate discharge in the next 24 hours. He is homeless and has no clear safe discharge, so we will continue to monitor. cc: Brian Holm MD
[2019-06-12] MEDS: NS 1,000 ML IV SCH (02:58)
[2019-06-12] MEDS: ATARAX PO PRN (05:54)
[2019-06-12] MEDS: PROTONIX PO SCH ×2 (05:55→06:10)
--- NOTE | 2019-06-12 08:25 | DISCHARGE SUMMARY ---
ADMISSION DATE: 06/05/2019 DISCHARGE DATE: 06/12/2019 PRIMARY CARE PHYSICIAN: None. ADMISSION DIAGNOSES: 1. Nausea, vomiting. 2. Abdominal pain. 3. Myalgias. 4. Paresthesias. 5. Tremors. 6. Alcohol abuse, withdraw, and stabilization. 7. Chronic anxiety and depression with suicidal thoughts. DISCHARGE DIAGNOSES: 1. Acute alcoholic hepatitis. 2. Alcohol withdrawal syndrome. 3. Chronic anxiety and depression with history of suicidal thoughts. SUMMARY OF FINDINGS: This is a 43-year-old male who presented to the ER with abdominal pain, nausea, vomiting, stated that he had been heavily drinking 15 beers or more a day, has a longstanding history of drinking and isolating himself, becomes depressed and starts drinking more. He also has become suicidal and has had some negative thoughts recently, and notes that he wants help. States he had no plan to kill himself, but had negative thoughts and thoughts of hopelessness. He was admitted. We placed him on a Librium taper. Continued to monitor for withdrawal. We did do a [facility] consult. [facility] did not feel that he meets inpatient criteria at this time. His labs are all stable at this time, and his LFTs have trended down, and it is now felt that he can safely be discharged. DISCHARGE MEDICATIONS: No medications at discharge were given. FOLLOWUP: He does need to obtain a primary care physician. We can give him the physician referral line. We discussed ETOH cessation with this patient, who verbalized understanding. TIME SPENT: A 35-minute discharge. Pt seen and examined, saw 06/11 and stable, pt is homeless but we have arranged transport and retirement services; will dc tomorrow when he is able to get family for tx; start welbutrin for depression. Dictated by SHARON Urbano for Brian Holm MD cc: SHARON Urbano MD [facility]
--- NOTE | 2019-06-12 08:28 | PROGRESS NOTE ---
DATE: 06/12/2019 DISCHARGE DIAGNOSES: 1. Acute alcoholic hepatitis. That is improving. 2. Alcohol withdrawal syndrome. He seems to be doing okay. In any case, the patient really looks okay. He is not too excited because he does not have a home to go to, but we will continue to monitor, getting Social Work to evaluate for outpatient mental health options and also as he is homeless, will not be able to stay in the hospital, so we will continue to follow closely. cc: Brian Holm MD
[2019-06-12 08:41] VITALS: BP 133/82
[2019-06-12] MEDS: VITAMIN B-1 PO SCH (09:03)
[2019-06-12] MEDS: FOLIC ACID PO SCH (09:03)
== END 2019-06-12 10:28 | disposition home or self-care (01) | DRG 897 ==
LOC: P.ED 06:18 → SUATTDRO 06:19 → P.ICU 22:36 → P.MEDSURG 06-07 11:29
PROVIDERS: ATTEND Internal Medicine